=== PATIENT | male | born 1990 | race American Indian/Alaskan Native ===

== ENCOUNTER 2020-12-09 00:08 | Emergency (ER) | payer SELFPAY ==
[2020-12-09 01:47] LABS: Basophils % (Auto) 0.2 % (0.0-1.8); Eosinophils % (Auto) 0.3 % (0.0-4.3); Hematocrit 38.2 % (35.5-45.6); Hemoglobin 13.2 gm/dl (11.8-15.2); Lymphocytes # (Auto) 2.4 K/mm3 (1.2-5.4); Lymphocytes % (Auto) 25.9 % (13.4-35.0); Mean Corpuscular HGB Conc 34 % (32-34); Mean Corpuscular Volume 93 fl (84-94); Monocytes # (Auto) 0.7 K/mm3 (0.0-0.8); Monocytes % (Auto) 7.3 % (0.0-7.3); Platelet Count 277 K/mm3 (140-440); Red Cell Distribution Width 12.3 % (13.2-15.2)
[2020-12-09 02:14] LABS: Alanine Aminotransferase 11 units/L (7-56); Albumin 5.2 g/dL (3.9-5); BUN/Creatinine Ratio 12; Blood Urea Nitrogen 12 mg/dL (9-20); Calcium 10.3 mg/dL (8.4-10.2); Hemolysis Index 2
--- NOTE | 2020-12-09 02:24 | XRay Report ---
CHEST 2 VIEWS, 12/09/2020 INDICATION: Chest pain COMPARISON: None FINDINGS: Support devices: None. Heart: The cardiac silhouette is normal in size. Lungs/pleura: The lungs are clear of focal airspace disease or significant pleural effusion. Additional findings: No significant acute abnormality. IMPRESSION: 1. No evidence of acute cardiopulmonary process. Signer Name: Joy Banuelos MD Signed: 12/09/2020 2:19 AM Workstation Name: [id number]
--- NOTE | 2020-12-09 08:03 | Emergency Department Report ---
ED Chest Pain HPI - General Chief Complaint: Arrhythmia/Palpitations Stated Complaint: RAPID HEARTBEAT Time Seen by Provider: 12/09/20 08:00 Source: patient Mode of arrival: Ambulatory Limitations: No Limitations - History of Present Illness Initial Comments: 30-year-old -[place] male patient with history of bipolar disorder, schizophrenia, and sinus tachycardia presents via EMS with complaints of rapid heartbeat and chest pain starting last night while at work. Patient states it feels like his anxiety. He reports the chest pain is substernal and describes it as an aching pain. He denies any other past cardiac history, but admits to family history of heart disease. No shortness of breath, leg pain/swelling, history of DVT/PE, recent long travel, cough/hemoptysis, or history of cancer per patient. He states his pain was initially 10/10 in severity and rates it currently as a 6/10 in severity. Patient states he normally takes metoprolol for his sinus tachycardia and states compliance - Related Data Allergies Allergy/AdvReac Type Severity Reaction Status Date / Time No Known Allergies Allergy Unverified 12/09/20 01:27 Heart Score - HEART Score History: Slightly suspicious EKG: Normal Age: < 45 Risk factors: 1-2 risk factors Troponin: < normal limit HEART Score: 1 - EKG Read Time Time EKG Completed: 00:00 EKG Read Time: 00:00 - Critical Actions Critical Actions: 0-3 pts:0.9-1.7%risk of adverse cardiac event.Candidate for discharge ED Review of Systems ROS: Stated complaint: RAPID HEARTBEAT Other details as noted in HPI Constitutional: denies: chills, fever, malaise Respiratory: denies: cough, shortness of breath Cardiovascular: chest pain, palpitations. denies: dyspnea on exertion, orthopnea, edema, syncope Gastrointestinal: denies: abdominal pain Musculoskeletal: denies: back pain Neurological: denies: headache Hematological/Lymphatic: denies: easy bleeding, swollen glands ED Past Medical Hx - Past Medical History Hx Psychiatric Treatment: Yes (bipolar, schizophrenia) - Surgical History Past Surgical History?: No - Social History Smoking Status: Current Every Day Smoker Substance Use Type: Alcohol, Marijuana ED Physical Exam - General Limitations: No Limitations General appearance: alert, in no apparent distress - Head Head exam: Present: atraumatic, normocephalic - Eye Eye exam: Present: normal appearance. Absent: scleral icterus - ENT ENT exam: Present: normal exam - Neck Neck exam: Present: normal inspection, full ROM - Respiratory Respiratory exam: Present: normal lung sounds bilaterally. Absent: respiratory distress, chest wall tenderness - Cardiovascular Cardiovascular Exam: Present: regular rate, normal rhythm. Absent: systolic murmur, diastolic murmur, rubs, gallop - GI/Abdominal GI/Abdominal exam: Present: soft. Absent: distended, tenderness - Neurological Exam Neurological exam: Present: alert, oriented X3, normal gait - Psychiatric Psychiatric exam: Present: normal affect, anxious - Skin Skin exam: Present: warm, dry, intact, normal color. Absent: rash, diaphoretic, pallor, ecchymosis ED Course Vital Signs 12/09/20 12/09/20 12/09/20 01:28 08:27 09:37 Temperature 98.7 F 98.6 F Pulse Rate 95 H 72 70 Respiratory 18 18 Rate Blood Pressure 118/77 115/75 Blood Pressure 105/62 [Left] O2 Sat by Pulse 98 100 Oximetry ED Medical Decision Making - Lab Data Result diagrams: 12/09/20 01:37 12/09/20 01:37 Lab Results 12/09/20 12/09/20 12/09/20 Range/Units 01:37 01:37 04:47 WBC 9.1 (4.5-11.0) K/mm3 RBC 4.10 (3.65-5.03) M/mm3 Hgb 13.2 (11.8-15.2) gm/dl Hct 38.2 (35.5-45.6) % MCV 93 (84-94) fl MCH 32 (28-32) pg MCHC 34 (32-34) % RDW 12.3 L (13.2-15.2) % Plt Count 277 (140-440) K/mm3 Lymph % (Auto) 25.9 (13.4-35.0) % [place] % (Auto) 7.3 (0.0-7.3) % Eos % (Auto) 0.3 (0.0-4.3) % Baso % (Auto) 0.2 (0.0-1.8) % Lymph # (Auto) 2.4 (1.2-5.4) K/mm3 [place] # (Auto) 0.7 (0.0-0.8) K/mm3 Eos # (Auto) 0.0 (0.0-0.4) K/mm3 Baso # (Auto) 0.0 (0.0-0.1) K/mm3 Seg Neutrophils % 66.3 (40.0-70.0) % Seg Neutrophils # 6.0 (1.8-7.7) K/mm3 Sodium 136 L (137-145) mmol/L Potassium 3.9 (3.6-5.0) mmol/L Chloride 99.0 (98-107) mmol/L Carbon Dioxide 25 (22-30) mmol/L Anion Gap 16 mmol/L BUN 12 (9-20) mg/dL Creatinine 1.0 (0.8-1.3) mg/dL Estimated GFR > 60 ml/min BUN/Creatinine Ratio 12 % Glucose 93 (75-100) mg/dL Calcium 10.3 H (8.4-10.2) mg/dL Total Bilirubin 0.60 (0.1-1.2) mg/dL AST 20 (5-40) units/L ALT 11 (7-56) units/L Alkaline Phosphatase 56 (35-129) units/L Troponin T < 0.010 < 0.010 (0.00-0.029) ng/mL Total Protein 7.8 (6.3-8.2) g/dL Albumin 5.2 H (3.9-5) g/dL Albumin/Globulin Ratio 2.0 % - Radiology Data Radiology results: report reviewed CHEST 2 VIEWS, 12/09/2020 INDICATION: Chest pain COMPARISON: None FINDINGS: Support devices: None. Heart: The cardiac silhouette is normal in size. Lungs/pleura: The lungs are clear of focal airspace disease or significant pleural effusion. Additional findings: No significant acute abnormality. IMPRESSION: 1. No evidence of acute cardiopulmonary process. - Medical Decision Making 30-year-old -[place] male patient with history of bipolar disorder, schizophrenia, and sinus tachycardia presents via EMS with complaints of rapid heartbeat and chest pain starting last night while at work. Patient states it feels like his anxiety. He reports the chest pain is substernal and describes it as an aching pain. He denies any other past cardiac history, but admits to family history of heart disease. No shortness of breath, leg pain/swelling, history of DVT/PE, recent long travel, cough/hemoptysis, or history of cancer per patient. He states his pain was initially 10/10 in severity and rates it currently as a 6/10 in severity. Patient states he normally takes metoprolol for his sinus tachycardia and states compliance CBC and CMP are within normal limits. Troponin x3 is normal. Chest x-ray is normal. Heart score = 1. Physical exam is normal. Patient given Ativan. He states his symptoms have completely resolved. Patient's vitals remain normal, he is well-appearing, he is stable for discharge home. Recommend follow-up with PCP in 3 days. Discussed signs and symptoms that should prompt immediate return to the emergency department in detail with patient who verbalized understanding. Critical care attestation.: If time is entered above; I have spent that time in minutes in the direct care of this critically ill patient, excluding procedure time. ED Disposition Clinical Impression: Other chest pain, Palpitations, Anxiety Disposition: DC-01 TO HOME OR SELFCARE Is pt being admited?: No Condition: Stable Instructions: Panic Attack, [id number], Nonspecific Chest Pain, Adult, [id number], Palpitations Referrals: PRIMARY CARE,MD [Primary Care Provider] - 2-3 Days
[2020-12-09] MEDS ORDERED: LORazepam 1 MG TAB PO ONE (08:37)
[2020-12-09] MEDS ORDERED: METOPROLOL TARTRATE 50 MG TAB PO ONE (08:37)
[2020-12-09 10:35] VITALS: BP 113/70
--- NOTE | 2020-12-12 18:52 | Electrocardiograph Report ---
[facility] Test Date: 2020-12-09 Test Time: 01:43:54 Pat Name: SUNITHA KHANNA Department: Room: Gender: M Lieutenant Fire Fighter: MARCIE : 1990 Requested By: ED DOC Order Number: [id number] Reading MD: Sarabjit Wilhelm Measurements Intervals [place] Rate: 83 P: 71 ND: 144 QRS: 67 QRSD: 85 T: 63 QT: 384 QTc: 453 Interpretive Statements Sinus rhythm ST elev, probable normal early repol pattern No previous ECG available for comparison Electronically Signed On 12-12-2020 18:52:21 EDT by Sarabjit Wilhelm
== END 2020-12-09 10:35 | disposition home or self-care (01) ==
LOC: ED 00:08
DX: R07.89 Other chest pain (principal); R00.2 Palpitations; F41.9 Anxiety disorder, unspecified; F31.9 Bipolar disorder, unspecified; F20.9 Schizophrenia, unspecified; F17.200 Nicotine dependence, unspecified, uncomplicated; F12.90 Cannabis use, unspecified, uncomplicated; Z72.89 Other problems related to lifestyle; Z79.899 Other long term (current) drug therapy
CPT/HCPCS: 36415; 71046; 80053; 84484; 85025; 93005; 99284